=== PATIENT | female | born 2000 | race Caucasian/White ===

== ENCOUNTER 2024-12-16 12:16 | Observation (INO) | payer OTHER, SELFPAY ==
[2024-12-16] VITALS (8 sets, daily range): BP systolic 112–122; BP diastolic 58–79; PULSE 87–111; RESP 16; TEMP 36.9; BMI 35.3
--- NOTE | 2024-12-16 13:04 | OBADM ---
This patient, Susy Skinner, admitted to the OB room [facility] Post 113 for observation. Patient/family oriented to hospital policies and general routines including ID bracelet, bed and alarms, visiting hours, pain management, procedures, bathroom and other care routines, personal items, smoking policy, room service/diet, and visiting hours. Patient/Family are encouraged to report perceived risks to care and to ask questions if they do not understand what they are told or what they should do.
[2024-12-16 13:24] LABS: Add Urine Microscopic? YES; Appearance Urine Cloudy (Clear); Glucose Urine UA Negative (Negative); Leukocyte Esterase Ur 1+ LEU/UL (Negative); Nitrate Urine Negative (Negative); Non Pathogenic Casts 0-2; Specific Grav Ur 1.016 (1.001-1.035)
[2024-12-16 13:27] LABS: OBXCEM ROM Plus Negative (Negative)
--- OUTSIDE RECORDS SUMMARY | 2024-12-16 13:39 | XMS_ITS | Clinical Summary ---
Author Organization [facility] [place] Address [address] [place] [address] Care Team Providers Care Coat Feller Name Role Phone Unavailable Primary Care Provider Unavailabl e Source Comments [facility],non-owned Affiliates and Associated Physician Practices is amultiple site organization consisting of ambulatory clinics and hospital sitesin [place], [place], [place] and [place]. This disclosure is being madepursuant to the Care Everywhere program and may not contain all information available regarding this patient. Last updated 17.[facility] [place] Allergies No known active allergies Medications * Be aware that medications may not be up to date on this document. Alwaysverify current medications with the patient. fluticasone propionate (FLONASE) 50 MCG/ACT nasal spray [place] 1 [place] into each nostril 2 times daily 1 Bottle 1 03/29/2016 Active Active Problems No known active problems Social History Tobacco Use Types Packs/Day Years Used Date Smoking Tobacco: Never Alcohol Use Standard Drinks/Week Comments Not Asked 0 (1 standard drink = 0.6 oz pur e alcohol) Comments Unknown Sex and Gender Information Value Date Recorded Sex Assigned at Not on file Legal Sex Female 5:47 PM CDT Gender Identity Not on file Sexual Orientation Not on file Last Filed Vital Signs Vital Sign Reading Time Taken Comments Blood Pressure 94/60 03/29/2016 10:43 AM [employer] Pulse 105 03/29/2016 10:43 AM [employer] Temperature 37.1 C (98.8 F) 03/29/2016 10:43 AM [employer] DIRECTOR Respiratory Rate - - Oxygen Saturation 96% 03/29/2016 10:43 AM [employer] Inhaled Oxygen Concentration - - Weight 43.5 kg (96 lb) 03/29/2016 10:43 AM [employer] DIRECTOR Height 152.4 cm (5') 03/29/2016 10:43 AM [employer] DIRECTOR Body Mass Index 18.75 03/29/2016 10:43 AM [employer] DIRECTOR Plan of Treatment Health Maintenance Due Date Last Done Comments HIV SCREENING 2016 HPV VACCINE (1 - 3-dose series) 2016 CHLAMYDIA/GONORRHEA SCREENING 2017 MENINGOCOCCAL (Group B) VACC INE SHARED DECISION-MAKING (1 of 2 - Standard) 2017 HEPATITIS C SCREENING 12/19/2019 DTAP/TDAP/TD VACCINES (1 - Tdap) 2020 HEPATITIS B VACCINE (1 of 3 - 19+ 3-dose series) 2020 DEPRESSION SCREENING 02/19/2024 COVID-19 VACCINE (1 - 2023-2 5 season) 2024 INFLUENZA VACCINE (#1) 2024 ZOSTER VACCINE (1 of 2) 12/24/2051 HIB VACCINE Aged Out No longer eligi ble based on patient's age to complete this topic MENINGOCOCCAL GROUPS A/C/Y/W VACCINE Aged Out No longer eligible b ased on patient's age to complete this topic PNEUMOCOCCAL VACCINE Aged Out No long er eligible based on patient's age to complete this topic Insurance ANTH
--- OUTSIDE RECORDS SUMMARY | 2024-12-16 13:40 | XMS_ITS | Data Portability ---
Author Organization [facility] Address [address] [place] [address] [place] [address] Care Team Providers Care Cabin Supervisor Name Role Phone SELENE BRYANT Primary Care Provider MARVA KRAUS Primary Care Provider [phone] Assessment Encounter Date Assessment Date Assessment LastModified by Organization Details LastModified Time 10/14/2024 10/14/2024 Patient is _24__weeks . Discussed plan. Not available 10/16/2024 09:27:11 12/11/2024 12/11/2024 Patient is _32__weeks . Discussed plan. [email or web address] Not available 12/11/2024 16:51:44 Plan of Treatment Reminders Order Date Submit Date Provider Last Modified By Organization Details Last Modified Time Details Appointments OB ROUTINE 2024 04:15P Viviane Aaron CNM Not available Not available Not available OB ROUTINE 2024 03:30P Viviane Aaron CNM Not available Not available Not available Lab None recorded . Referral None recorded . Procedures None recorded . Surgeries None recorded . Imaging US, obstetri c, follow-u p 2024 [id number] [email or web address] [facility], [address], [address], [place], [address], 10/15/2024 22:40:51 Medication Orders None recorded . Patient TargetsNo targets recorded. Patient InstructionsNo instructions recorded. Reason for Referral None Reported. Results Created Date Observation Date Name Description Value Unit Range Abnormal Flag Note LastModifiedBy Organization Detail LastModifiedTime 11/12/19 25 11/11/2024 HEMOG LOBIN (HGB) HGB 9.7 g/dL (based on docume nted legal sex) 11.6-1 5.4 low Not Available [facility] (Lab) [address], [place], [address], 11/12/2024 14:59:07 11/12/19 25 11/11/2024 HEMAT OCRIT (HCT) HCT 31.0 % (based on docume nted legal sex) 34.0-4 5.0 low Not Available [facility] (Lab) [address] [place], [address], 11/12/2024 14:59:07 11/12/19 25 11/11/2024 GTT - GESTA AVRIL L BIBI N, ACOG OB glucose, 1 hour screen 103 mg/dL 70-135 Not Available [facility] (Lab) [address] [place], [address], 11/12/2024 14:59:08 11/12/19 25 11/11/2024 HIV 1/2 ANTIG EN/AN TIBOD Y, REFLE X CONFI RMATI ON HIV antigen/anti body Nonrea ctive nonrea ctive HIV-1 antig en and HIV-1 /HIV- 2 antib odies were not detec ariana. No labor atory evide nce of HIV infec tion. Not Available [facility] (Lab) [address], [place], [address], 11/12/2024 14:59:08 11/12/19 25 11/11/2024 RPR SCREE N, REFLE X TITER /CONF IRMAT ION RPR qualitative Nonrea ctive nonrea ctive Not Available [facility] (Lab) [address] [place], [address], 11/12/2024 14:59:09 09/17/19 25 09/16/2024 US, obste tric, 2nd or 3rd trime ster No observ ation record ed. [email or web address] [facility] [address], [place], [address], 09/16/2024 16:57:12 09/17/19 25 09/16/2024 US, obste tric, follo w-up No observ ation record ed. [email or web address] [address], [place], [address], 09/17/2024 17:23:14 10/15/19 25 10/14/2024 US, obste tric, follo w-up No observ ation record ed. [email or web address] [facility] [address], [place], [address], 10/14/2024 17:53:46 10/15/19 25 10/14/2024 US, obste tric, follo w-up No observ ation record ed. [email or web address] [address], [place], [address], 10/16/2024 14:53:35 Result Notes None recorded. 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 1 11:07:21 Pregnanc y [id number] Active 2024 Jen ingram [facility] 5 16:52:46 Problem Notes None recorded. Procedures Surgical History Date Name Laterality Status Provider Name and Address Organization Details Recorded Time 07/01/2024 Date of Last Pap Smear completed Jen Dempsey [facility] 07/01/2024 12:45:10 11/18/2020 bone graft completed Jen Dempsey [facility] 01/18/2021 11:09:04 Imaging Results None recorded. Procedure Notes None recorded. Medical Equipment None Reported. Allergies No known drug allergies Medications Name Sig Start Date Stop Date Status Note LastModified by Organization Details LastModified Time amoxicillin 500 mg capsule 01/17 completed Not Available Not Available Not Available doxycycline hyclate 100 mg capsule TAKE 1 CAPSULE BY MOUTH TWICE A DAY FOR 7 DAYS 06/27 completed Not Available Not Available Not Available azithromyci n 250 mg tablet TAKE 2 TABLETS BY MOUTH TODAY, THEN TAKE 1 TABLET DAILY FOR 4 DAYS 04/30 completed Not Available Not Available Not Available fluconazole 150 mg tablet TAKE 1 TABLET BY MOUTH EVERY 72 HOURS 12/12 completed Not Available Not Available Not Available hydrocodone 5 mg-acetamin ophen 325 mg tablet 01/17 completed Not Available Not Available Not Available metronidazo le 500 mg tablet TAKE 1 TABLET BY MOUTH TWICE A DAY FOR 7 DAYS 12/12 completed Not Available Not Available Not Available benzonatate 100 mg capsule TAKE 1 CAPSULE BY MOUTH THREE TIMES A DAY FOR 5 DAYS 12/12 completed Not Available Not Available Not Available clotrimazol e-betametha sone 1 %-0.05 % topical cream APPLY TO AFFECTED AREA AND SURROUNDI NG AREAS IN THE MORNING AND EVENING FOR 2 WEEKS 12/12 completed Not Available Not Available Not Available ibuprofen 600 mg tablet 01/18 completed Not Available Not Available Not Available scopolamine 1 mg over 3 days transdermal patch APPLY 1 PATCH BY TRANSDERM AL ROUTE FOR 3 DAYS DIRECTED 10/14 completed Not Available Not Available Not Available methylpredn isolone 4 mg tablets in a dose pack TAKE 6 TABLETS ON DAY 1 DIRECTED ON PACKAGE AND DECREASE BY 1 TAB EACH DAY FOR A TOTAL OF 6 DAYS 04/30 completed Not Available Not Available Not Available albuterol sulfate HFA 90 mcg/actuati on aerosol inhaler INHALE 2 PUFFS BY MOUTH EVERY 4 HOURS FOR 5 DAYS 12/12 completed Not Available Not Available Not Available drospirenon e 3 mg-ethinyl estradiol 0.03 mg tablet TAKE 1 TABLET BY MOUTH EVERY DAY 12/12 completed Not Available Not Available Not Available Junel FE 1.5/30 (28) 1.5 mg-30 mcg (21)/75 mg (7) tablet Take 1 tablet every day by oral route. 09/29 completed Not Available Not Available Not Available nitrofurant oin monohydrate /macrocryst als 100 mg capsule TAKE 1 CAPSULE BY MOUTH EVERY 12 HOURS FOR 7 DAYS 07/01 completed Not Available Not Available Not Available active Not Available Not Avai lable Not Available Xulane 150 mcg-35 mcg/24 hr transdermal patch APPLY 1 PATCH ONTO THE SKIN ONCE WEEKLY 06/20 completed Not Available Not Available Not Available Aurovela Fe 1-20 (28) 1 mg-20 mcg (21)/75 mg (7) tablet TAKE 1 TABLET BY MOUTH EVERY DAY 07/01 completed Not Available Not Available Not Available aspirin 81 mg capsule Take 1 capsule every day by oral route. active Not Available Not Available No t Available Vitals Date Recorded Body height Body mass index (BMI) Body weight Systolic And Diastolic Provider Name and Address Organization Details Last Updated DateTime 10/14/2024 154.94 cm 35 kg/m2 47338.59 g 109/73 mm[Hg] Diana Rollins [facility] 10/14/2024 17:51:42 Date Recorded Body weight Systolic And Diastolic Provider Name and Address Organization Details Last Updated DateTime 11/10/2024 61942.58558 g 97/65 mm[Hg] Tiffany [facility] 11/10/2024 17:57:27 Date Recorded Body weight Systolic And Diastolic Provider Name and Address Organization Details Last Updated DateTime 11/26/2024 72483.76930 g 116/78 mm[Hg] Tiffany [facility] 11/26/2024 17:09:52 Date Recorded Body height Body mass index (BMI) Body weight Systolic And Diastolic Provider Name and Address Organization Details Last Updated DateTime 12/11/2024 154.94 cm 36.3 kg/m2 93499.74 g 102/71 mm[Hg] Shakila Chilel [facility] 12/11/2024 16:37:43 Social History Question Answer Notes LastModified by Organizat ion Details LastModified Time Tobacco Smoking Status Never Smoker Tabitha [facility] 12/12/2022 15:48:40 Do You Have An Advance Directive? No [email or web address] Information n ot available 01/18/2021 If You Are , What Was Your Level Of Alcohol Consumption Prior To ? Occasional [email or web address] Information not available 07/01/2024 How Many Years Have You Consumed Alcohol? 0 [email or web address] Information not available 06/21/2023 Are You Blind Or Do You Have Difficulty Seeing? No [email or web address] Information n ot available 01/18/2021 What Is Your Level Of Caffeine Consumption? Moderate [email or web address] Information not available 11/12/2023 How Much Tobacco Do You Chew? None [email or web address] Information not available 01/18/2021 In The 14 Days Before Symptom Onset, Have You Had Close Contact With A Laboratory-confirm ed COVID-19 While That Case Was Ill? No [email or web address] Information n ot available 01/18/2021 In The 14 Days Before Symptom Onset, Have You Had Close Contact With A Person Who Is Under Investigation For COVID-19 While That Person Was Ill? No [email or web address] Information not available 01/18/2021 Have You Been To An Area Known To Be High Risk For COVID-19? No [email or web address] Information not available 01/18/2021 Are You Deaf Or Do You Have Serious Difficulty Hearing? No [email or web address] Information not available 01/18/2021 What Type Of Diet Are You Following? REGULAR [email or web address] Information n ot available 01/18/2021 What Is The Highest Grade Or Level Of School You Have Completed Or The Highest Degree You Have Received? [id number] [email or web address] Information not available 01/18/2021 Are There Any Guns Present In Your Home? No [email or web address] Information not available 01/18/2021 What Was The Date Of Your Most Recent Tobacco Screening? 07/24/2024 [email or web address] Information not available 07/24/2024 Do You Use Protection During Sex? No [email or web address] Information not available 09/16/2024 Do You Use Your Seat Belt Or Car Seat Routinely? Yes Information not available 01/18/2021 Are You Sexually Active? Yes [email or web address] Information not available 09/16/2024 Do You Have Smoke And Carbon Monoxide Detectors In Your Home? Yes Information not available 01/18/2021 How Much Tobacco Do You Smoke? No [email or web address] Information not available 07/31/2019 Do You Use Sunscreen Routinely? Yes [email or web address] Information not available 01/18/2021 Has Tobacco Cessation Counseling Been Provided? No [email or web address] Information not available 09/16/2024 Have You Used IV Drugs? No [email or web address] Information not available 01/18/2021 Do You Have Difficulty Walking Or Climbing Stairs? No Information not available 12/12/2022 Sex: Unknown Functional Status Question Answer Note LastModified by Organizat ion Details LastModified Time Do you use any illicit or recreational drugs? No Information not available 01/18/2021 Do you or have you ever used any other forms of tobacco or nicotine? No Information not available 09/16/2024 What is your level of alcohol consumption? None [email or web address] Information not available 07/01/2024 Do you or have you ever used smokeless tobacco? Never used smokeless tobacco Information not available 12/12/2022 Are you currently employed? Yes [email or web address] Information not available 09/16/2024 Are you able to walk independently without assistance or assistive devices? YESWOREST [email or web address] Information not available 01/18/2021 Are you able to care for yourself independently? 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 No Information not available 12/12/2022 Do you or have you ever used e-cigarettes or vape? Former user of electronic cigarettes [email or web address] Information not available 07/01/2024 What is your exercise level? Occasional [email or web address] Information not available 07/31/2019 Mental Status Question Answer Note LastModified by Organization D etails LastModified Time Do you feel stressed (tense, restless, nervous, or anxious, or unable to sleep at night)? [id number] [email or web address] Information not available 07/24/2024 Family History Relationship Description Onset Age of this Age Resolved Age Notes LastModified by Organization Details LastModified Time Maternal Aunt Anemia [email or web address] Not av ailable 07/31/2019 14:21:21 Maternal Grandmother Anemia [email or web address] Not available 01/2020 14:21:21 Mother Anemia [email or web address] Not available 07/31/2019 14:21:21 Paternal Grandmother Hypertensive disorder [email or web address] Not available 07/30 14:21:32 Paternal Grandmother Malignant neoplasm of ovary [email or web address] Not available 07/2024 13:43:32 Medical History Condition Response Other N Blood Transfusion N Dermatologic Disorders N Gestational Diabetes N Anxiety Disorder N Autoimmune disease N Arthritis N Polyps N Infertility N Acid Reflux (GERD) N Cancer N Varicosities N Stroke N Neurologic/Epilepsy N Fibromyalgia N Headaches N Kidney Disease N Heart Problems N Kidney or Bladder Problems N Eating Disorder N Art (IVF or FET) N Hepatitis/Liver Disease N No Past Medical History N Urinary Tract Infection N Asthma N Trauma/Violence N Thrombophilias N Allergies (Food, seasonal, environmental ) N Breast Cancer N Drug/Latex Allergies/Reactions N Lung Disease N Defects or Inherited Disease N Breast Problem N Hematologic disorders N Anesthesia Complications N History of STI N Deep Vein Thrombosis N Polycystic ovary syndrome N History of abnormal pap N Endometriosis N High Cholesterol N Thyroid Problems N GI Problems N Anemia N Psychiatric Illness N Ovarian Cancer N Diabetes N Pulmonary (TB, Asthma) N Eczema N Abuse/Domestic Violence N Depression/ depression N Heart Disease N Pre-Eclampsia N Hypertension N Osteoporosis N Gynecological History Statement/Question Response Flow Moderate Date of Last Mammogram Date of LMP 04/29/2024 N Was last menstrual period normal Y STIs/STDs N Date of Last Colonoscopy BCPs Abnormal Pap N HPV Vaccine Y Duration of Flow (days) 5 Current Control Method 14 Are cycles usually normal Y Frequency of Cycle (Q days) 30 Sexually Active? Y Menses Monthly Y Date of DEXA bone scan Age of first menstrual cycle 15 Date of Last Pap Smear 07/01/2024 Sexual Problems? N LMP Approximate N Obstetrics History GPAL:G 1 P 0 0 0 0 Type Value Living 0 Total 1 Past Encounters Encounter ID Performer Location Encounter Start Date Encounter Closed Date Diagnosis/Indication Diagnosis SNOMED-CT Code Diagnosis ICD10 Code Diagnosis IMO Codes Diagnosis Note [id number] Katherine Aaron [facility] [address],[place] [address] 07/31/2019 14:08:16 07/31/2019 14:26:44 Surveillance of oral contraception 246572864 Z30.41 [id number] Katherine Aaron [facility] [address],[place] [address] 01/18/2021 11:00:57 01/18/2021 14:34:47 Gynecologic examination 06143297 Z01.419 see if cramping resolves with this pill call if sxs persist otherwise f/u one year wwe [id number] Katherine Aaron [place] [address],[place] [address] 09/29/2021 11:11:09 09/29/2021 11:42:59 Contraception care management 730915602 Z30.9 [id number] Chet Mir MD [facility] [address],[place] [address] 04/27/2022 14:43:15 04/30/2022 15:21:14 Vulvovaginitis 44028605 N76.0 this patient is a 21-year-ol d female with severe vulvar irritation pain. She reports some vaginal discharge. She was examined. She has of severely swollen labia minora on the left and a very erythemato us vulva. Swabs were taken. We talked about treatment. I treat with Diflucan and Lotrisone. [id number] [facility] [address],[place] [address] 12/12/2022 15:28:55 12/12/2022 16:19:51 Contraception care management 273267939 Z30.9 Gynecologi c examination 67259217 Z01.419 if doesn't like ocp may change back to patch at any time [id number] SILKE Cruz [facility] [address],[place] [address] 06/21/2023 11:14:48 06/21/2023 12:03:42 Pain in pelvis 01049975 R10.2 This patient is a 22 -year-old female with pelvic pain. We have agreed to complete the evaluation with pelvic ultrasound . The patient will return after the pelvic ultrasound to discuss those findings and to develop a treatment plan. A comprehens kaela history and physical exam was performed today. We spent over 25 minutes face-to-fa ce. The patient was given precaution s. She will contact clinic if pelvic pain increases in frequency or intensity. Also notify clinic of any new symptoms associated with pelvic pain. She does not appear to have an acute pelvic infection today, but was asked to contact us Immediatel y with nausea, vomiting, fever, chills. UPT (-)urine cx sentgc/ct/ trich testing sentpelvic u/s scheduledp recautions reviewed Venereal d isease screening 494606470 Z11.3 [id number] Chet Mir MD [facility] [address],[place] [address] 06/27/2023 16:25:14 06/27/2023 17:05:40 Pain in pelvis 96073756 R10.2 [id number] BAHMAN PRICE MD [facility] [address],[place] [address] 11/12/2023 17:02:12 11/12/2023 17:59:27 Cramping pain 546964859 R52 [id number] Chet Mir MD [facility] [address],[place] [address] 07/01/2024 11:44:30 07/01/2024 12:25:01 [id number] Katherine Aaron CNM [facility] [address],[place] [address] 07/01/2024 11:46:03 07/01/2024 12:53:07 Gynecologic examination 56755298 Z01.963 [id number] start pnv, reviewed education precaution spap collectedp charles new ob and first look at 12 weeksf/u 3 weeks [id number] MD Betty Powell [address],[place] [address] 07/24/2024 12:22:41 07/24/2024 13:41:14 screening 585682704 Z36.82 Z3A.12 [id number] [id number] [facility] [address],[place] [address] 07/24/2024 13:43:29 07/29/2024 09:52:28 Gestation period, 12 weeks 59215687 Z3A.12 5249220 s johnson of fetus 12619776 Z34.90 3598023347 [id number] [facility] [address],[place] [address] 08/19/2024 17:07:37 08/19/2024 17:55:38 Gestation period, 16 weeks 76380523 Z3A.16 5772522 [id number] Chet Mir MD [facility] [address],[place] [address] 09/16/2024 15:26:01 09/16/2024 16:41:02 screening for malformation 580378197 Z36.3 Z3A.20 9508475292 [id number] [facility] [address],[place] [address] 09/16/2024 15:27:08 09/16/2024 16:42:11 Gestation period, 20 weeks 94405779 Z3A.20 2443913 cont pnv Dizziness 406564643 R42 00691 [id number] Chet Mir MD [facility] [address],[place] [address] 10/14/2024 16:50:30 10/14/2024 17:49:58 Follow-up encounter 021963300 Z36.2 Z3A.24 1662718053 [id number] [facility] [address],[place] [address] 10/14/2024 16:50:45 10/16/2024 10:02:06 Gestation period, 24 weeks 532860564 Z3A.24 7190219 cont pnv [id number] BAHMAN PRICE MD [facility] [address],[place] [address] 11/10/2024 17:47:07 11/11/2024 08:26:40 Third trimester 54257695 Z34.03 [id number] [id number] BAHMAN PRICE MD [facility] [address],[place] [address] 11/26/2024 16:55:35 11/27/2024 08:45:10 Anemia 166425904 D64.9 8184610 - Hgb 9.7- Fe supplement - Repeat at 34 weeks Gestation period, 30 weeks 63037810 Z3A.30 5727291 - continue PNV [id number] Katherine Aaron [facility] [address],[place] [address] 12/11/2024 16:22:06 12/11/2024 16:53:53 Gestation period, 32 weeks 9341021 Z3A.32 8375896 Health Concerns Section Related Observation LastModified by Organization Detai ls LastModified Time None Recorded Concern Status LastModified by Organization Details LastModified Time None Recorded Advance Directives Directive N: Payers Insurance Date Sequence Insurance Name Policy Number Policy Rdz Covered Member ID Rdz Member ID Guarantor Name 11/12/2023 PAYMENT PLAN Susy Skinner 08/02/2024 PAYMENT PLAN Susy Skinner 08/20/2024 2 [place] [id number] Devon Skinner [id number] Susy Skinner 09/02/2024 1 [place] [id number] Devon Skinner [id number] Susy Skinner 01/16/2021 1 [place] [id number] Devon Skinner [id number] Susy Skinner 09/26/2021 1 [place] [id number] Devon Skinner [id number] Susy Skinner 12/08/2024 1 [facility] (MEDICAID HMO) Susy Skinner [id number] Susy Skinner 12/08/2024 1 [facility] (MEDICAID HMO) Susy Skinner [id number] Susy Skinner 09/02/2024 PAYMENT PLAN Susy Skinner 12/08/2024 1 [place] [facility] Susy Skinner [id number] Susy Skinner 06/29/2024 1 [facility] (PPO) [id number] Devon Skinner [id number] Susy Skinner 12/15/2024 1 [facility] (MEDICAID HMO) [id number] Susy Skinner [id number] Susy Skinner Notes Date Note Type Note Provider Name and Address Organization Details Recorded Time 10/14/2024 text/html Generic HPI TemplateReported by Patient Katherine Aaron CNM [address], [place], [address], [facility] 10/16/2024 09:31:20 11/10/2024 text/html Generic HPI TemplateReported by Patient BAHMAN PRICE MD [address], [place], [address], [facility] 11/10/2024 18:08:14 11/26/2024 text/html Generic HPI TemplateReported by Patient BAHMAN PRICE MD [address], [place], [address], [facility] 11/26/2024 23:55:24 12/11/2024 text/html Generic HPI TemplateReported by Patient Katherine Aaron CNM [address], [place], [address], [facility] 12/11/2024 16:52:05 OBGyn Episode Ob Episode Information Episode Created Date Number of Fetuses Patient Bloodtype Patient rh Status Prepregnancy Weight lbs Domestic Partner Domestic Partner Phone Father Name Tile Designer Status 07/25/19 25 1 A Positive 170 Natthan OPEN Fetus Data First Name Last Name Admitted to NICU Weight (g) Sex Living Outcome Pediatric Complications Fetus ID Race Codes Race Delivery Type [id number] Lee Calculation Initial Lee Date Initial Exam Date Initial Exam Provider Initial Ultrasound Date Last Menstrual Period Date Ultra Sound Weeks Gestation 02/03/2025 07/01/2024 [email or web address] 07/01/2024 04/29/2024 9 Eighteen To Twenty Week Lee Update Ultra Sound Date Fundal Height At Umbil Quickening Date Ultra Sound Latest Weeks Gestation Final Lee Confirmed By Final Lee Confirmed Date Final Lee Date Ultra Sound Latest Days Gestation 0 02/04/20 25 0 Pre-derek Flowsheet Flowsheet Date 07/24/2024 Last Score Blood Edema Fundus Height Fundus Units Glucose Ketones Leukocytes Nitrite Labor Signs Protein Cervic Dilation Cervic Effacement Cervic Station neg none none trace Type Weight in lbs Pre/Post Dialysis Refused Weight 173.601524940054 BP Diastolic BP Location Tested BP Systolic BP Type 76 111 Fetus Heart Rate Present Fetus Movement A No Comments first , reviewed us , education and precautions, start daily bASA and begin routine care Flowsheet Date 08/19/2024 Last Score Blood Edema Fundus Height Fundus Units Glucose Ketones Leukocytes Nitrite Labor Signs Protein Cervic Dilation Cervic Effacement Cervic Station Type Weight in lbs Pre/Post Dialysis Refused 173.753761968704 BP Diastolic BP Location Tested BP Systolic BP Type 67 L arm 97 sitting Fetus Heart Rate Present Fetus Movement A No Comments doing well no questions or c omplaints, no fm yet, plan 20 week anatomy scan f/u 4 weeks Flowsheet Date 09/16/2024 Last Score Blood Edema Fundus Height Fundus Units Glucose Ketones Leukocytes Nitrite Labor Signs Protein Cervic Dilation Cervic Effacement Cervic Station Type Weight in lbs Pre/Post Dialysis Refused BP Diastolic BP Location Tested BP Systolic BP Type Fetus Heart Rate Present Fetus Movement Comments Flowsheet Date 09/16/2024 Last Score Blood Edema Fundus Height Fundus Units Glucose Ketones Leukocytes Nitrite Labor Signs Protein Cervic Dilation Cervic Effacement Cervic Station Type Weight in lbs Pre/Post Dialysis Refused Weight 181.829506792793 BP Diastolic BP Location Tested BP Systolic BP Type 74 L arm 113 sitting Fetus Heart Rate Present Fetus Movement A Yes Comments anatomy incomplete, +FM crui se next week, scop patch to pharmacy, education and precautions f/u 4 weeks Flowsheet Date 10/14/2024 Last Score Blood Edema Fundus Height Fundus Units Glucose Ketones Leukocytes Nitrite Labor Signs Protein Cervic Dilation Cervic Effacement Cervic Station Type Weight in lbs Pre/Post Dialysis Refused BP Diastolic BP Location Tested BP Systolic BP Type Fetus Heart Rate Present Fetus Movement Comments Flowsheet Date 10/14/2024 Last Score Blood Edema Fundus Height Fundus Units Glucose Ketones Leukocytes Nitrite Labor Signs Protein Cervic Dilation Cervic Effacement Cervic Station Type Weight in lbs Pre/Post Dialysis Refused Weight 185.576653352087 BP Diastolic BP Location Tested BP Systolic BP Type 73 L arm 109 sitting Fetus Heart Rate Present Fetus Movement A Yes Comments anatomy complete efw 61%, pl an gct at 28 weeks, precautions and education +FM Flowsheet Date 11/10/2024 Last Score Blood Edema Fundus Height Fundus Units Glucose Ketones Leukocytes Nitrite Labor Signs Protein Cervic Dilation Cervic Effacement Cervic Station Type Weight in lbs Pre/Post Dialysis Refused [id number] BP Diastolic BP Location Tested BP Systolic BP Type 65 97 Fetus Heart Rate Present A 135 Fetus Movement A Yes Comments Good movement. No cram ping or bleeding. Back pain, will size for belly band today. Will return for GCT and labs. Discussed tdap. RTC 2 weeks. Flowsheet Date 11/26/2024 Last Score Blood Edema Fundus Height Fundus Units Glucose Ketones Leukocytes Nitrite Labor Signs Protein Cervic Dilation Cervic Effacement Cervic Station Type Weight in lbs Pre/Post Dialysis Refused 194.362530028912 BP Diastolic BP Location Tested BP Systolic BP Type 78 L arm 116 sitting Fetus Heart Rate Present A 140 Fetus Movement A Yes Comments Doing well, baby active. No cramping or bleeding. Passed GCT. Anemia, taking Fe supplement. Repeat in 4 weeks. RTC 2 weeks. Flowsheet Date 12/11/2024 Last Score Blood Edema Fundus Height Fundus Units Glucose Ketones Leukocytes Nitrite Labor Signs Protein Cervic Dilation Cervic Effacement Cervic Station Type Weight in lbs Pre/Post Dialysis Refused Weight 192.107916863157 BP Diastolic BP Location Tested BP Systolic BP Type 71 L arm 102 sitting Fetus Heart Rate Present A 142 Present Fetus Movement A Yes Comments vaccine rx's given +FM , doi ng well. baby shower next weekend. precautions and education f/u two weeks Menstrual History Last Menstrual Date Menses Monthly On Bcp Conception Prior Menses Frequency Hcg Plus Date Menarche Onset Age 0304/29/2023 Delivery Information Delivery Date Delivery Type Labor Anesthesia Weeks Gestation Incision Type Labor Labor Length Hrs Delivered By Post Complications Tubal Sterilization Discharge Date Comments Discharge Information Feeding Method Contraceptive Method Maternal HG B and HCT Levels
--- NOTE | 2024-12-16 13:43 | PC.NURSE ---
Lorraine Aaron CNM looked up pt's blood type- A Positive.
--- NOTE | 2024-12-16 13:43 | PC.NURSE ---
Lorraine Aaron CNM informed of pt's fall on Saturday, pt's current c/o continuous abdominal tightening and low back cramping. C/O watery discharge since Saturday. ROM plus was negative. Given UA results. Informed started picking up contractions 4-5 mins apart. SVE tight 1 cm- not for sure if it goes all the way through to internal os, 60%, softening, and -2 station. Orders received.
[2024-12-16] MEDS: CEPHALEXIN 500 MG CAPSULE PO (14:58)
--- NOTE | 2024-12-17 07:18 | PM.OBTRLD ---
OB - Triage/Final Diagnosis Visit Information Date of evaluation: 12/16/24 Reason for evaluation: other (abd pain) Comments/Additional reasons for admission: I have assessed the risk for this patient, Susy Skinner, and determined that she would benefit from observation care. Evaluation Laboratory results: Laboratory Tests 12/16/24 12/16/24 12:46 13:21 Urine Color Yellow Urine Appearance Cloudy H Urine pH 7.0 Ur Specific [place] 1.016 Urine Protein Trace Urine Glucose (UA) Negative Urine Ketones Negative Ur Blood (Man) Negative Urine Nitrate Negative Urine Bilirubin Negative Urine Urobilinogen 1.0 Leukocyte Esterase Rfl 1+ H Urine RBC 0-2 Urine WBC 11-20 H Ur Squamous Epith Cells Few Urine Bacteria 1+ H Urine Casts 0-2 Membranes Rupture Rom plus negative Vital signs: Vital Signs - 24 hr 12/16/24 12:47 12/16/24 13:00 12/16/24 13:04 Temperature 36.9 C Pulse Rate 94 90 Respiratory Rate 16 Blood Pressure 121/71 119/68 Oxygen Delivery Room Air 12/16/24 13:30 12/16/24 14:00 12/16/24 14:30 Temperature Pulse Rate 90 87 90 Respiratory Rate Blood Pressure 114/76 120/77 120/79 Oxygen Delivery 12/16/24 15:00 12/16/24 15:30 12/16/24 16:00 Temperature Pulse Rate 103 H 111 H 97 Respiratory Rate Blood Pressure 122/68 112/58 L 117/67 Oxygen Delivery
== END 2024-12-16 16:28 | disposition home or self-care (01) ==
PROVIDERS: Advanced Practice Midwife; Admitting Provider Obstetrics & Gynecology; PCP Internal Medicine; Visit Provider Obstetrics & Gynecology
DX: R10.9 Unspecified abdominal pain (principal); Z3A.34 34 weeks gestation of pregnancy; W18.30XA Fall on same level, unspecified, initial encounter
CPT/HCPCS: 81001; 84112; 87086; A9270; G0378; G0379

== ENCOUNTER 2025-01-28 11:52 | Inpatient (IN) | payer OTHER, SELFPAY ==
[2025-01-28] VITALS (61 sets, daily range): BP systolic 117–134; BP diastolic 68–86; PULSE 50–124; TEMP 36.6–36.7; O2SAT 80–100; BMI 36.1
--- OUTSIDE RECORDS SUMMARY | 2025-01-28 14:43 | XMS_ITS | Clinical Summary ---
Author Organization [facility] Address [address] [place] [address] Care Team Providers Care Conductor Freight Name Role Phone Unavailable Primary Care Provider Unavailabl e Source Comments [facility],non-owned Affiliates and Associated Physician Practices is amultiple site organization consisting of ambulatory clinics and hospital sitesin [place], [place], [place] and [place]. This disclosure is being madepursuant to the Care Everywhere program and may not contain all information available regarding this patient. Last updated 17.[facility] Allergies No known active allergies Medications * Be aware that medications may not be up to date on this document. Alwaysverify current medications with the patient. fluticasone propionate (FLONASE) 50 MCG/ACT nasal spray [place] 1 [place] into each nostril 2 times daily 1 [...] Comments Blood Pressure 94/60 03/29/2016 10:43 AM B[facility]MAN Pulse 105 03/29/2016 10:43 AM [facility]MAN Temperature 37.1 C (98.8 F) 03/29/2016 10:43 AM B[facility]MAN Respiratory Rate - - Oxygen Saturation 96% 03/29/2016 10:43 AM B[facility]MAN Inhaled Oxygen Concentration - - Weight 43.5 kg (96 lb) 03/29/2016 10:43 AM [facility]MAN Height 152.4 cm (5') 03/29/2016 10:43 AM [facility]MAN Body Mass Index 18.75 03/29/2016 10:43 AM B[facility]MAN Plan of Treatment Health Maintenance Due Date [...] DEPRESSION SCREENING 02/19/2024 COVID-19 VACCINE (1 - 2024-2 6 season) 2024 INFLUENZA VACCINE (#1) 2024 ZOSTER [...]
[2025-01-28 20:29] LABS: Hematocrit 30.8 % (37.0-47.0); Hemoglobin 10.0 g/dL (12.0-15.0); Immature Granulocyte Percent A 0.4 % (0-0.5); Lymphocytes Absolute Auto 2.64 K/mm3 (0.9-3.2); Mean Corpuscular HGB Conc 32.5 g/dl (32-36); Mean Corpuscular Hemoglobin 26.9 pg (26-34); Mean Corpuscular Volume 82.8 fl (80-100); Nucleated Red Blood Cells Absolute Auto 0.000 K/mm3 (0.0-0.012); Nucleated Red Blood Cells Perc 0.0 % (0.0-0.2); Platelet Count Result 267 k/mm3 (150-375); Red Blood Count 3.72 M/mm3 (4.2-5.4); White Blood Count 10.5 K/mm3 (4.5-10.0)
--- NOTE | 2025-01-28 20:49 | LDADM ---
This patient, Susy Skinner, was admitted to Labor/Delivery/Recovery 109 on 01/28/25 at 11:52. Plans for labor, pain management and were discussed with patient. Patient/family oriented to hospital policies and general routines including ID bracelet, bed and alarms, visiting hours, pain management, procedures, bathroom and other care routines, personal items, smoking policy, room service/diet and guest tray routines, security routines, and visiting hours. Patient/Family are encouraged to report perceived risks to care and to ask questions if they do not understand what they are told or what they should do. See OBIX for further documentation.
[2025-01-28 21:09] LABS: Syphilis IgG/IgM Antibody Non-Reactive (Nonreactive)
[2025-01-28] MEDS: LACTATED RINGERS 1,000 ML 125 ML IV CONT (21:16)
[2025-01-28] MEDS: OXYTOCIN 30 UNITS/NS 500 ML 30 UNITS/500 ML BAG IV CONT (21:18)
[2025-01-29] VITALS (356 sets, daily range): BP systolic 87–224; BP diastolic 50–194; PULSE 66–221; TEMP 36.6–38.6; O2SAT 88–100
[2025-01-29] MEDS: LACTATED RINGERS 1,000 ML 125 ML IV CONT ×3 (04:54→20:10)
--- NOTE | 2025-01-29 08:04 | WPDANESEPPF ---
Anes - Initial Pre Proc Eval Procedure: labor epidural Date/Time: 01/29/25 08:04 Surgeon: Chet Mir MD Pre Op Diagnosis: labor pain Pre Op Diagnosis: IOL Patient Data Age: 24 Gender: F Height: 1.6 m Weight: 92.7 kg Last Vital Signs Temp 36.7 C 01/29/25 07:15 Pulse 84 01/29/25 06:15 BP 139/98 H 01/29/25 06:15 Pulse Ox 99 01/29/25 06:25 O2 Del Method Room Air 01/28/25 20:00 Allergies Allergy/AdvReac Type Severity Reaction Status Date / Time No Known Allergies Allergy Verified 01/28/25 20:36 Home Medications ?Medication ?Instructions ?Recorded ?Confirmed ?Type ferrous sulfate 325 mg (65 mg 325 mg PO DAILY 12/16/24 01/28/25 History iron) tablet vit no.95-ferrous 1 tablet PO DAILY 12/16/24 01/28/25 History fumarate 28 mg-folic acid 800 mcg tablet () Laboratory Tests 01/28/25 20:17 WBC 10.5 H K/mm3 (4.5-10.0) RBC 3.72 L M/mm3 (4.2-5.4) Hgb 10.0 L g/dL (12.0-15.0) Hct 30.8 L % (37.0-47.0) MCV 82.8 fl (80-100) MCH 26.9 pg (26-34) MCHC 32.5 g/dl (32-36) RDW 15.7 H % (11.5-14.5) Plt Count 267 k/mm3 (150-375) MPV 12.1 H fl (7.4-10.4) Immature Gran % (Auto) 0.4 % (0-0.5) Neut % (Auto) 67.4 % (45.5-73.1) Lymph % (Auto) 25.2 % (18.3-44.2) [place] % (Auto) 6.2 % (2.6-8.5) Eos % (Auto) 0.6 % (0-4.4) Baso % (Auto) 0.2 % (0.2-1.2) Lymph # (Auto) 2.64 K/mm3 (0.9-3.2) [place] # (Auto) 0.7 H K/mm3 (0.1-0.6) Eos # (Auto) 0.1 K/mm3 (0-0.3) Baso # (Auto) 0.0 K/mm3 (0.0-0.1) Abs Immat Gran (auto) 0.04 H K/mm3 (0.00-0.031) Absolute Neuts (auto) 7.1 H K/mm3 (1.3-6.7) Absolute Nucleated RBC 0.000 K/mm3 (0.0-0.012) Nucleated RBC % 0.0 % (0.0-0.2) Syphilis IgG/IgM Ab Non-reactive (Nonreactive) Blood Type A Positive Antibody Screen Negative Patient hx anesthesia problems: none Family hx anesthesia problems: none Results Review: All pre-operative results and documents have been reviewed as part of the pre-operative evaluation. [facility] Past Medical History Medical History (Updated 01/29/25 @ 08:05 by Funmi Man CRNA) Obese Anemia Social History Social History Smoking status: Never smoker Substance use: never Lack of Transportation: No Lack of Food: Never True Current Housing: I Have Housing Concerned About Future Housing: No Difficulty Paying Gas/Electric Bills: No Difficulty Paying for Meds: No Currently Unemployed: No Education: High School Diploma/GED Difficulty w/ Childcare or Family Care: No Spiritual care concerns: No Anes - Eval Final PreProcedure Day of Procedure 01/29/25 08:04 Patient weight: obese Heart: regular rate and rhythm Lungs: clear to auscultation and normal air movement Airway: Mallampati scale Neurological: alert and oriented ASA classification: II Emergent: no Anesthetic plan: proceed Anesthesia type and monitoring: regional epidural and standard monitoring Results Review: All pre-operative results and documents have been reviewed as part of the pre-operative evaluation. Informed Consent: The patient's anesthetic plan and its attendant risks and benefits were discussed with the patient/family/POA. Questions were solicited and answers provided to the satisfaction of the patient/family/POA.
--- NOTE | 2025-01-29 08:11 | WPDHPUPDATE1 ---
History and Physical Update Update Date/Time: 01/29/25 08:11 24-year-old primipara at term who presents for elective induction labor. Pitocin was started overnight, spontaneous rupture membranes occurred this morning clear fluid. Favorable cervix. Reassuring heart tones. Active management of labor. History and Physical has been reviewed, including an updated exam of the patient. There are NO changes in the patient's condition. Risks, benefits, and alternatives have been discussed and questions answered. Patient agrees to proceed with procedure.
[2025-01-29] MEDS: AMPICILLIN SODIUM 2 GM in SODIUM CHLORIDE 0.9% IV 100 ML 200 ML IVPB (21:22)
[2025-01-29] MEDS: ACETAMINOPHEN 500 MG TABLET 1000 MG PO (21:23)
[2025-01-30] VITALS (47 sets, daily range): BP systolic 103–142; BP diastolic 57–93; PULSE 84–217; RESP 14–25; TEMP 36.1–37.1; O2SAT 95–100
[2025-01-30] MEDS: FAMOTIDINE 20 MG/2 ML VIAL IV PUSH (01:21)
--- NOTE | 2025-01-30 01:21 | PM.IMHP2 ---
H&P: HPI History of Present Illness Date/Time: 01/30/25 01:21 Chief Complaint: Term Narrative: This patient is a 24-year-old primiparous female at term with elective induction of labor. She has failure to progress at 8 cm. To perform delivery. She understands risks, benefits, and alternatives. She has completed informed consent process and is ready to proceed. The patient understands the details of the procedure. The procedure has been explained in detail. She understands the risks. She understands that injuries may occur that result in hospitalization, more surgery, and severe illness. She understands risk of hemorrhage and infection. She denies any chest pain or shortness of breath. She denies any nausea, vomiting, fever, chills. Review of Systems Review of Systems: All systems reviewed & are unremarkable except as noted in HPI and below Constitutional: Constitutional: Denies chills, Denies fatigue, Denies fever(s) and Denies weakness Eyes: Eyes: Denies blurry vision, Denies change in vision, Denies loss of peripheral vision, Denies loss of vision, Denies other visual disturbances and Denies eye pain ENT: Denies vertigo, Denies dizziness, Denies hearing loss, Denies mouth pain, Denies nasal obstruction, Denies neck mass and Denies neck pain Cardiovascular: Cardiovascular: Denies chest pain, Denies diaphoresis, Denies syncope, Denies leg edema and Denies dyspnea Respiratory: Respiratory: Denies chest congestion, Denies cough, Denies hemoptysis, Denies dyspnea and Denies wheezing Gastrointestinal: Gastrointestinal: Denies abdominal pain, Denies constipation, Denies diarrhea, Denies nausea and Denies vomiting Genitourinary: Genitourinary: Denies hematuria, Denies change in libido, Denies nocturia, Denies genital lesions, Denies flank pain and Denies urinary urgency Musculoskeletal: Musculoskeletal: Denies abnormal gait, Denies back pain, Denies myalgias, Denies arthralgias, Denies joint swelling, Denies muscle weakness and Denies neck pain Integumentary/Breasts: Skin/Breast: Denies swelling, Denies breast pain, Denies breast mass, Denies dry skin, Denies nipple discharge, Denies unusual bruising and Denies jaundice Neurologic: Denies Neuro-related abnormal movements, Denies Abnormal speech present, Denies abnormal gait, Denies behavioral changes, Denies confusion, Denies vertigo, Denies dizziness, Denies syncope, Denies loss of vision, Denies memory loss, Denies convulsions and Denies weakness Psychiatric: Psychiatric: Denies abnormal sleep pattern, Denies behavioral changes, Denies change in libido, Denies confusion, Denies depression, Denies anhedonia and Denies memory loss Endocrine: Endocrine: Reports no additional endocrine complaints, Denies change in libido and Denies fatigue Hematologic/Lymphatic: Hematologic/Lymphatic: Reports no additional hematologic/lymphatic complaints Allergic/Immunologic: Allergic/Immunologic: Reports no additional allergic/immunologic complaints and Denies wheezing PMFSH Past Medical History Medical History (Updated 01/30/25 @ 01:27 by Chet Mir MD) Obese Anemia Social History Social History Smoking status: Never smoker Substance use: never Lack of Transportation: No Lack of Food: Never True Current Housing: I Have Housing Concerned About Future Housing: No Difficulty Paying Gas/Electric Bills: No Difficulty Paying for Meds: No Currently Unemployed: No Education: High School Diploma/GED Difficulty w/ Childcare or Family Care: No Spiritual care concerns: No Meds Home Medications and Allergies Home Medications ?Medication ?Instructions ?Recorded ?Confirmed ?Type ferrous sulfate 325 mg (65 mg 325 mg PO DAILY 12/16/24 01/28/25 History iron) tablet vit no.95-ferrous 1 tablet PO DAILY 12/16/24 01/28/25 History fumarate 28 mg-folic acid 800 mcg tablet () Allergies Allergy/AdvReac Type Severity Reaction Status Date / Time No Known Allergies Allergy Verified 01/28/25 20:36 Vital Signs Vital Signs - 24 hr 01/29/25 01:22 01/29/25 01:27 01/29/25 01:30 Temperature Pulse Rate 74 Blood Pressure 120/73 Pulse Oximetry 99 98 01/29/25 01:32 01/29/25 01:37 01/29/25 01:42 Temperature Pulse Rate Blood Pressure Pulse Oximetry 98 99 99 01/29/25 01:45 01/29/25 01:47 01/29/25 01:52 Temperature Pulse Rate 78 Blood Pressure 125/86 Pulse Oximetry 99 99 01/29/25 01:57 01/29/25 02:00 01/29/25 02:02 Temperature Pulse Rate 80 Blood Pressure 124/82 Pulse Oximetry 99 99 01/29/25 02:07 01/29/25 02:12 01/29/25 02:15 Temperature Pulse Rate 78 Blood Pressure 122/80 Pulse Oximetry 100 99 01/29/25 02:17 01/29/25 02:22 01/29/25 02:27 Temperature Pulse Rate Blood Pressure Pulse Oximetry 99 99 98 01/29/25 02:30 01/29/25 02:32 01/29/25 02:36 Temperature Pulse Rate 75 Blood Pressure 125/91 H Pulse Oximetry 100 100 01/29/25 02:41 01/29/25 02:45 01/29/25 02:46 Temperature Pulse Rate 72 Blood Pressure 133/86 Pulse Oximetry 99 99 01/29/25 02:51 01/29/25 02:56 01/29/25 03:05 Temperature Pulse Rate Blood Pressure Pulse Oximetry 100 99 98 01/29/25 03:10 01/29/25 03:14 01/29/25 03:19 Temperature Pulse Rate Blood Pressure Pulse Oximetry 99 99 99 01/29/25 03:24 01/29/25 03:29 01/29/25 03:34 Temperature Pulse Rate Blood Pressure Pulse Oximetry 100 100 99 01/29/25 03:39 01/29/25 03:44 01/29/25 03:49 Temperature Pulse Rate Blood Pressure Pulse Oximetry 99 99 100 01/29/25 03:50 01/29/25 03:54 01/29/25 03:59 Temperature 98.2 F Pulse Rate 76 Blood Pressure 121/93 H Pulse Oximetry 100 100 01/29/25 04:04 01/29/25 04:09 01/29/25 04:14 Temperature Pulse Rate Blood Pressure Pulse Oximetry 99 99 99 01/29/25 04:15 01/29/25 04:19 01/29/25 04:24 Temperature Pulse Rate 80 Blood Pressure 131/86 Pulse Oximetry 100 99 01/29/25 04:29 01/29/25 04:30 01/29/25 04:36 Temperature Pulse Rate 71 Blood Pressure 130/98 H Pulse Oximetry 99 100 01/29/25 04:41 01/29/25 04:45 01/29/25 04:46 Temperature Pulse Rate 66 Blood Pressure 122/80 Pulse Oximetry 100 99 01/29/25 04:51 01/29/25 04:56 01/29/25 05:00 Temperature Pulse Rate 79 Blood Pressure 115/75 Pulse Oximetry 99 100 01/29/25 05:01 01/29/25 05:06 01/29/25 05:11 Temperature Pulse Rate Blood Pressure Pulse Oximetry 99 100 100 01/29/25 05:15 01/29/25 05:16 01/29/25 05:21 Temperature Pulse Rate 80 Blood Pressure 129/86 Pulse Oximetry 99 98 01/29/25 05:26 01/29/25 05:30 01/29/25 05:31 Temperature Pulse Rate 87 Blood Pressure 137/71 Pulse Oximetry 98 98 01/29/25 05:36 01/29/25 05:41 01/29/25 05:45 Temperature Pulse Rate Blood Pressure Pulse Oximetry 98 99 99 01/29/25 05:46 01/29/25 05:50 01/29/25 05:55 Temperature Pulse Rate 111 H Blood Pressure 112/72 Pulse Oximetry 98 98 01/29/25 06:00 01/29/25 06:05 01/29/25 06:10 Temperature Pulse Rate 74 Blood Pressure 120/80 Pulse Oximetry 98 98 99 01/29/25 06:15 01/29/25 06:20 01/29/25 06:25 Temperature Pulse Rate 84 Blood Pressure 139/98 H Pulse Oximetry 98 99 99 01/29/25 07:15 01/29/25 08:06 01/29/25 08:08 Temperature 98.1 F Pulse Rate 96 92 Blood Pressure 137/82 121/97 H Pulse Oximetry 99 01/29/25 08:10 01/29/25 08:11 01/29/25 08:13 Temperature Pulse Rate 106 H 98 Blood Pressure 129/90 133/86 Pulse Oximetry 100 01/29/25 08:15 01/29/25 08:16 01/29/25 08:18 Temperature Pulse Rate 91 83 Blood Pressure 129/95 H 136/89 Pulse Oximetry 100 01/29/25 08:20 01/29/25 08:21 01/29/25 08:23 Temperature Pulse Rate 92 87 Blood Pressure 134/93 H 135/85 Pulse Oximetry 100 01/29/25 08:24 01/29/25 08:26 01/29/25 08:28 Temperature Pulse Rate 86 88 86 Blood Pressure 131/60 114/95 H 129/85 Pulse Oximetry 100 01/29/25 08:30 01/29/25 08:31 01/29/25 08:33 Temperature Pulse Rate 80 81 Blood Pressure 128/84 125/79 Pulse Oximetry 99 01/29/25 08:35 01/29/25 08:36 01/29/25 08:38 Temperature Pulse Rate 81 84 Blood Pressure 126/73 128/77 Pulse Oximetry 100 01/29/25 08:40 01/29/25 08:41 01/29/25 08:45 Temperature Pulse Rate 82 170 H Blood Pressure 125/76 97/65 L Pulse Oximetry 100 01/29/25 08:46 01/29/25 08:47 01/29/25 08:50 Temperature Pulse Rate 91 Blood Pressure 110/76 Pulse Oximetry 99 99 01/29/25 08:52 01/29/25 08:55 01/29/25 08:57 Temperature Pulse Rate 102 H Blood Pressure 108/59 L Pulse Oximetry 100 100 01/29/25 09:01 01/29/25 09:02 01/29/25 09:05 Temperature Pulse Rate 105 H 99 Blood Pressure 103/68 113/64 Pulse Oximetry 100 01/29/25 09:07 01/29/25 09:10 01/29/25 09:12 Temperature Pulse Rate 101 H Blood Pressure 136/81 Pulse Oximetry 98 96 01/29/25 09:15 01/29/25 09:16 01/29/25 09:20 Temperature 98.1 F Pulse Rate 101 H 86 Blood Pressure 115/57 L 99/63 L Pulse Oximetry 95 01/29/25 09:21 01/29/25 09:25 01/29/25 09:26 Temperature Pulse Rate 84 Blood Pressure 97/56 L Pulse Oximetry 97 98 01/29/25 09:30 01/29/25 09:31 01/29/25 09:35 Temperature Pulse Rate 77 77 Blood Pressure 97/63 L 97/61 L Pulse Oximetry 100 01/29/25 09:36 01/29/25 09:40 01/29/25 09:41 Temperature Pulse Rate 80 Blood Pressure 97/59 L Pulse Oximetry 100 99 01/29/25 09:45 01/29/25 09:46 01/29/25 09:50 Temperature Pulse Rate 90 89 Blood Pressure 101/68 109/63 Pulse Oximetry 99 01/29/25 09:51 01/29/25 09:55 01/29/25 09:56 Temperature Pulse Rate 129 H Blood Pressure 97/53 L Pulse Oximetry 99 98 01/29/25 10:01 01/29/25 10:06 01/29/25 10:11 Temperature Pulse Rate Blood Pressure Pulse Oximetry 100 100 100 01/29/25 10:15 01/29/25 10:16 01/29/25 10:21 Temperature Pulse Rate 88 Blood Pressure 111/62 Pulse Oximetry 100 100 01/29/25 10:26 01/29/25 10:30 01/29/25 10:31 Temperature Pulse Rate 78 Blood Pressure 112/73 Pulse Oximetry 100 99 01/29/25 10:36 01/29/25 10:41 01/29/25 10:45 Temperature Pulse Rate 92 Blood Pressure 124/78 Pulse Oximetry 99 99 01/29/25 10:46 01/29/25 10:51 01/29/25 10:56 Temperature Pulse Rate Blood Pressure Pulse Oximetry 100 100 100 01/29/25 11:00 01/29/25 11:01 01/29/25 11:06 Temperature Pulse Rate 98 Blood Pressure 123/92 H Pulse Oximetry 99 99 01/29/25 11:11 01/29/25 11:15 01/29/25 11:16 Temperature 98 F Pulse Rate 94 Blood Pressure 123/77 Pulse Oximetry 99 100 01/29/25 11:21 01/29/25 11:26 01/29/25 11:31 Temperature Pulse Rate 82 Blood Pressure 118/64 Pulse Oximetry 100 99 100 01/29/25 11:36 01/29/25 11:41 01/29/25 11:45 Temperature Pulse Rate 77 Blood Pressure 110/57 L Pulse Oximetry 99 99 01/29/25 11:46 01/29/25 11:51 01/29/25 11:56 Temperature Pulse Rate Blood Pressure Pulse Oximetry 98 100 99 01/29/25 11:57 01/29/25 12:00 01/29/25 12:02 Temperature Pulse Rate 81 Blood Pressure 126/91 H Pulse Oximetry 97 100 01/29/25 12:07 01/29/25 12:12 01/29/25 12:16 Temperature Pulse Rate 76 Blood Pressure 127/78 Pulse Oximetry 98 100 01/29/25 12:17 01/29/25 12:22 01/29/25 12:27 Temperature Pulse Rate Blood Pressure Pulse Oximetry 99 99 98 01/29/25 12:30 01/29/25 12:32 01/29/25 12:46 Temperature Pulse Rate 82 97 Blood Pressure 121/75 95/69 L Pulse Oximetry 99 01/29/25 13:00 01/29/25 13:12 01/29/25 13:15 Temperature Pulse Rate 78 75 Blood Pressure 87/61 L 88/63 L Pulse Oximetry 99 01/29/25 13:17 01/29/25 13:22 01/29/25 13:27 Temperature Pulse Rate Blood Pressure Pulse Oximetry 100 100 99 01/29/25 13:30 01/29/25 13:32 01/29/25 13:37 Temperature 98.2 F Pulse Rate 79 Blood Pressure 96/62 L Pulse Oximetry 99 99 01/29/25 13:41 01/29/25 13:45 01/29/25 13:46 Temperature Pulse Rate 83 Blood Pressure 100/50 L Pulse Oximetry 98 100 01/29/25 13:51 01/29/25 13:56 01/29/25 14:01 Temperature Pulse Rate 221 H Blood Pressure 119/66 Pulse Oximetry 100 100 100 01/29/25 14:06 01/29/25 14:11 01/29/25 14:15 Temperature Pulse Rate 92 Blood Pressure 128/88 Pulse Oximetry 99 100 01/29/25 14:16 01/29/25 14:21 01/29/25 14:26 Temperature Pulse Rate Blood Pressure Pulse Oximetry 100 100 100 01/29/25 14:30 01/29/25 14:31 01/29/25 14:36 Temperature Pulse Rate 95 Blood Pressure 127/89 Pulse Oximetry 100 100 01/29/25 14:41 01/29/25 14:45 01/29/25 14:46 Temperature 99 F Pulse Rate 107 H Blood Pressure 128/87 Pulse Oximetry 100 100 01/29/25 14:50 01/29/25 14:51 01/29/25 14:56 Temperature 99 F Pulse Rate Blood Pressure Pulse Oximetry 100 99 01/29/25 15:00 01/29/25 15:01 01/29/25 15:06 Temperature Pulse Rate 117 H Blood Pressure 126/71 Pulse Oximetry 100 100 01/29/25 15:11 01/29/25 15:15 01/29/25 15:16 Temperature Pulse Rate 126 H Blood Pressure 121/69 Pulse Oximetry 100 100 01/29/25 15:21 01/29/25 15:26 01/29/25 15:30 Temperature Pulse Rate 96 Blood Pressure 127/82 Pulse Oximetry 98 98 01/29/25 15:31 01/29/25 15:36 01/29/25 15:41 Temperature Pulse Rate Blood Pressure Pulse Oximetry 99 99 100 01/29/25 15:45 01/29/25 15:46 01/29/25 15:51 Temperature Pulse Rate 104 H Blood Pressure 115/80 Pulse Oximetry 99 100 01/29/25 15:56 01/29/25 16:00 01/29/25 16:01 Temperature Pulse Rate 119 H Blood Pressure 128/94 H Pulse Oximetry 100 99 01/29/25 16:06 01/29/25 16:11 01/29/25 16:15 Temperature Pulse Rate 116 H Blood Pressure 120/78 Pulse Oximetry 97 100 01/29/25 16:16 01/29/25 16:21 01/29/25 16:26 Temperature 98.3 F Pulse Rate Blood Pressure Pulse Oximetry 100 99 99 01/29/25 16:30 01/29/25 16:31 01/29/25 16:34 Temperature Pulse Rate 105 H Blood Pressure 125/77 Pulse Oximetry 96 94 01/29/25 16:35 01/29/25 16:40 01/29/25 16:45 Temperature Pulse Rate 102 H Blood Pressure 123/75 Pulse Oximetry 94 92 93 01/29/25 16:50 01/29/25 16:55 01/29/25 17:00 Temperature Pulse Rate 101 H Blood Pressure 125/78 Pulse Oximetry 93 93 01/29/25 17:15 01/29/25 17:25 01/29/25 17:27 Temperature Pulse Rate 144 H Blood Pressure 132/77 Pulse Oximetry 98 100 01/29/25 17:30 01/29/25 17:32 01/29/25 17:37 Temperature Pulse Rate 136 H Blood Pressure 142/93 H Pulse Oximetry 100 100 01/29/25 17:42 01/29/25 17:45 01/29/25 17:47 Temperature Pulse Rate 109 H Blood Pressure 152/96 H Pulse Oximetry 100 100 01/29/25 17:52 01/29/25 17:57 01/29/25 18:00 Temperature 100 F H Pulse Rate 105 H Blood Pressure 137/93 H Pulse Oximetry 100 100 01/29/25 18:02 01/29/25 18:07 01/29/25 18:12 Temperature Pulse Rate Blood Pressure Pulse Oximetry 100 100 100 01/29/25 18:15 01/29/25 18:17 01/29/25 18:22 Temperature Pulse Rate 101 H Blood Pressure 133/98 H Pulse Oximetry 100 100 01/29/25 18:27 01/29/25 18:30 01/29/25 18:32 Temperature Pulse Rate 100 Blood Pressure 138/88 Pulse Oximetry 100 99 01/29/25 18:37 01/29/25 18:42 01/29/25 18:45 Temperature Pulse Rate 102 H Blood Pressure 119/67 Pulse Oximetry 100 100 01/29/25 18:47 01/29/25 18:52 01/29/25 18:57 Temperature Pulse Rate Blood Pressure Pulse Oximetry 100 100 100 01/29/25 19:00 01/29/25 19:02 01/29/25 19:07 Temperature Pulse Rate 107 H Blood Pressure 121/72 Pulse Oximetry 100 100 01/29/25 19:12 01/29/25 19:15 01/29/25 19:17 Temperature Pulse Rate 97 Blood Pressure 123/99 H Pulse Oximetry 100 100 01/29/25 19:22 01/29/25 19:27 01/29/25 19:30 Temperature Pulse Rate 92 Blood Pressure 131/71 Pulse Oximetry 100 100 01/29/25 19:32 01/29/25 19:37 01/29/25 19:42 Temperature Pulse Rate Blood Pressure Pulse Oximetry 100 100 100 01/29/25 19:46 01/29/25 19:51 01/29/25 19:56 Temperature Pulse Rate 93 Blood Pressure 105/89 Pulse Oximetry 99 100 100 01/29/25 20:00 01/29/25 20:01 01/29/25 20:06 Temperature 100.2 F H Pulse Rate 104 H Blood Pressure 102/64 Pulse Oximetry 98 99 01/29/25 20:11 01/29/25 20:15 12/12/25 20:16 Temperature Pulse Rate 105 H Blood Pressure 91/63 L Pulse Oximetry 100 99 01/29/25 20:21 01/29/25 20:26 01/29/25 20:30 Temperature Pulse Rate 102 H Blood Pressure 101/72 Pulse Oximetry 99 100 01/29/25 20:31 01/29/25 20:36 01/29/25 20:41 Temperature Pulse Rate Blood Pressure Pulse Oximetry 100 100 99 01/29/25 20:45 01/29/25 20:46 01/29/25 20:51 Temperature Pulse Rate 107 H Blood Pressure 112/59 L Pulse Oximetry 99 100 01/29/25 20:56 01/29/25 21:00 01/29/25 21:01 Temperature 101.4 F H Pulse Rate Blood Pressure Pulse Oximetry 99 99 01/29/25 21:06 01/29/25 21:11 01/29/25 21:13 Temperature Pulse Rate 108 H Blood Pressure 127/98 H Pulse Oximetry 100 100 01/29/25 21:14 01/29/25 21:15 01/29/25 21:19 Temperature Pulse Rate 126 H Blood Pressure 129/99 H Pulse Oximetry 100 99 01/29/25 21:20 01/29/25 21:23 01/29/25 21:25 Temperature 101.4 F H Pulse Rate 123 H 136 H Blood Pressure 133/89 144/98 H Pulse Oximetry 100 97 01/29/25 21:30 01/29/25 21:30 01/29/25 21:30 Temperature Pulse Rate Blood Pressure Pulse Oximetry 100 98 99 01/29/25 21:31 01/29/25 21:36 01/29/25 21:37 Temperature Pulse Rate 204 H 115 H Blood Pressure 224/194 H 123/57 L Pulse Oximetry 88 L 100 98 01/29/25 21:42 01/29/25 21:45 01/29/25 21:47 Temperature Pulse Rate 106 H Blood Pressure 116/66 Pulse Oximetry 98 99 01/29/25 21:52 01/29/25 21:57 01/29/25 22:00 Temperature 100.2 F H Pulse Rate 100 Blood Pressure 124/69 Pulse Oximetry 99 99 01/29/25 22:02 01/29/25 22:07 01/29/25 22:12 Temperature Pulse Rate Blood Pressure Pulse Oximetry 99 100 100 01/29/25 22:15 01/29/25 22:17 01/29/25 22:22 Temperature Pulse Rate 109 H Blood Pressure 108/56 L Pulse Oximetry 98 99 01/29/25 22:27 01/29/25 22:30 01/29/25 22:32 Temperature Pulse Rate 114 H Blood Pressure 128/74 Pulse Oximetry 100 100 01/29/25 22:37 01/29/25 22:42 01/29/25 22:45 Temperature Pulse Rate 122 H Blood Pressure 143/85 H Pulse Oximetry 100 99 01/29/25 22:47 01/29/25 22:52 01/29/25 22:57 Temperature Pulse Rate Blood Pressure Pulse Oximetry 100 100 99 01/29/25 23:00 01/29/25 23:02 01/29/25 23:07 Temperature Pulse Rate 127 H Blood Pressure 135/78 Pulse Oximetry 100 98 01/29/25 23:12 01/29/25 23:17 01/29/25 23:20 Temperature 98.4 F Pulse Rate Blood Pressure Pulse Oximetry 100 100 01/29/25 23:22 01/29/25 23:27 01/29/25 23:30 Temperature Pulse Rate 115 H Blood Pressure 139/88 Pulse Oximetry 100 99 01/29/25 23:32 01/29/25 23:45 01/30/25 00:00 Temperature Pulse Rate 100 104 H Blood Pressure 144/89 H 142/86 H Pulse Oximetry 100 01/30/25 00:09 01/30/25 00:14 01/30/25 00:15 Temperature Pulse Rate 100 Blood Pressure 136/75 Pulse Oximetry 98 98 01/30/25 00:19 01/30/25 00:24 01/30/25 00:29 Temperature Pulse Rate Blood Pressure Pulse Oximetry 98 99 100 01/30/25 00:30 01/30/25 00:34 01/30/25 00:39 Temperature Pulse Rate 103 H Blood Pressure 136/79 Pulse Oximetry 99 99 01/30/25 00:44 01/30/25 00:45 01/30/25 00:49 Temperature Pulse Rate 86 Blood Pressure 119/69 Pulse Oximetry 98 98 01/30/25 00:54 01/30/25 00:59 01/30/25 01:00 Temperature Pulse Rate 85 Blood Pressure 114/71 Pulse Oximetry 98 98 01/30/25 01:04 Temperature Pulse Rate Blood Pressure Pulse Oximetry 99 Exam Const: General: cooperative, healthy appearing, comfortable and no acute distress Orientation/consciousness: oriented to person, oriented to place and oriented to time HENMT: Head: normal to inspection Ears: external ears normal Face/Nose/Sinus: Normal external nose present and normal facial exam Face and sinus: normal facial exam Eyes: General: appearance normal, both eyes and all related structures Neck: Neck: normal visual inspection, trachea midline and supple Resp: Auscultation: clear to auscultation bilaterally, no crackles, no rales, no rhonchi and no wheezes Cardio: Rate: regular rate Rhythm: regular rhythm Heart sounds: no click, no murmurs and no rubs GI: GI Palp: No abdominal tenderness, No Soft to palpation, No Tenderness to palpation present (GI) and No Palpable mass present Auscultation: normal bowel sounds Skin: General skin exam: normal color and no rashes or lesions noted Neuro: General: oriented to person, oriented to place and oriented to time Extrem: General: normal to inspection, no joint enlargement, no clubbing, cyanosis or edema, no pedal edema and no calf tenderness Psych: Appearance: grossly normal Mental Status: mental status grossly normal Speech and movement: Normal speech and movement present Assessment and Plan Assessment and plan (1) Failure to progress in first stage of labor: Code(s): O63.0 - Prolonged first stage (of labor) Status: Acute Plan This patient is a 24-year-old primiparous female at term with elective induction of labor. She has failure to progress at 8 cm. To perform delivery. She understands risks, benefits, and alternatives. She has completed informed consent process and is ready to proceed.
[2025-01-30] MEDS: ONDANSETRON INJ 4 MG/2 ML VIAL IV PUSH (01:22)
[2025-01-30] MEDS: LACTATED RINGERS 1,000 ML 125 ML IV CONT (01:26)
--- NOTE | 2025-01-30 01:27 | WPDHPUPDATE1 ---
History and Physical Update Update Date/Time: 01/30/25 01:27 History and Physical has been reviewed, including an updated exam of the patient. There are NO changes in the patient's condition. Risks, benefits, and alternatives have been discussed and questions answered. Patient agrees to proceed with procedure.
--- NOTE | 2025-01-30 01:28 | WPDHPUPDATE1 ---
History and Physical Update Update Date/Time: 01/30/25 01:28 History and Physical has been reviewed, including an updated exam of the patient. There are NO changes in the patient's condition. Risks, benefits, and alternatives have been discussed and questions answered. Patient agrees to proceed with procedure.
--- NOTE | 2025-01-30 01:52 | P.PNAN_ITS ---
Anes - Eval Final PreProcedure Day of Procedure 01/30/25 01:52 Patient weight: obese Heart: tachycardia Lungs: clear to auscultation Neurological: alert and oriented ASA classification: II Emergent: no Anesthetic plan: proceed Anesthesia type and monitoring: regional epidural and standard monitoring Other findings: use existing epid for c/s Results Review: All pre-operative results and documents have been reviewed as part of the pre- operative evaluation. Informed Consent: The patient's anesthetic plan and its attendant risks and benefits were discussed with the patient/family/POA. Questions were solicited and answers provided to the satisfaction of the patient/family/POA.
--- NOTE | 2025-01-30 02:23 | W.PM.OBCSD ---
OB - Delivery Note Procedure Delivery date: 01/30/25 Pre-op diagnosis: Arrest of Dilation Post-op Diagnosis: Same Procedure Performed: Primary Surgeon: Chet Mir MD Anesthesia type: Epidural Description of Procedure/Findings: The patient was taken the operating room.? She was prepped and draped in dorsal supine position with a leftward tilt.? This was done after spinal anesthetic was applied.? A low-transverse skin incision was made and carried down till of the fascia with the knife.? The fascial incision was made with the knife.? The fascial incision was extended laterally with Dominguez scissors.? The fascia was tented upward superiorly and inferiorly the rectus muscles were dissected off bluntly.? The rectus muscles were the midline.? The preperitoneal fat and peritoneum were dissected open bluntly at the superior aspect of the rectus muscles.? The peritoneal incision was extended superior and inferior with good position of bladder.? The uterine incision was made with a scalpel down to the level of the amniotic cavity.? The amniotic cavity was entered bluntly.? The was delivered.? The cord was clamped and cut and the was handed off to waiting pediatric staff.? Cord bloods were obtained.? The placenta was removed manually.? The uterus was exteriorized.? The uterus was cleared of all clots, debris and membranes.? The uterus was closed in 0 Vicryl running lock fashion.? An imbricating over a was placed along the incision line as well.? The uterus was returned to the abdomen.? The gutters were cleared of all clots and debris.? The fascia was closed with 0 Vicryl running fashion.? The subcutaneous tissue was irrigated pinpoint bleeders were cauterized.? The skin was closed with subcuticular absorbable ravi.? The skin incision line was covered with glue.? The patient tolerated the procedure well.? She has taken recovery room in stable condition.? Sponge lap and needle counts were correct x2.?
[2025-01-30] MEDS: OXYTOCIN 30 UNITS/NS 500 ML 30 UNITS/500 ML BAG 125 UNITS IV CONT (04:20)
[2025-01-30] MEDS: KETOROLAC 15 MG/ML VIAL (*BKC) IV PUSH ×3 (05:35→17:44)
[2025-01-30] MEDS: ACETAMINOPHEN 500 MG TABLET 1000 MG PO ×4 (05:35→23:42)
--- NOTE | 2025-01-30 06:39 | OBPPTRN ---
Patient and infant transferred to post room #280 via stretcher. Support person present. Oriented to unit, room, information board, rooming in, admission packet and security measures. Patient verbalizes understanding.
[2025-01-30] MEDS: MULTIVIT/MIN/PREN/FOL AC/IRON TABLET 1 TAB PO (07:53)
[2025-01-30] MEDS: SIMETHICONE 80 MG TAB.CHEW PO ×3 (07:53→17:44)
[2025-01-30] MEDS: DOCUSATE SODIUM 100 MG CAPSULE PO ×2 (07:53→17:44)
[2025-01-30] MEDS: FERROUS SULFATE 325 MG TABLET BY MOUTH (07:53)
--- NOTE | 2025-01-30 16:14 | WPDANLDPN2 ---
Anes-Prog Note L&D Date/Time: 01/30/25 16:14 Comfortable throughout: labor and section Neuro status: Neuro function grossly intact. Cardiovascular status: normal Respiratory status: normal Airway patency: baseline Mental status: baseline Post-Op hydration status: normal Vital Signs: Last Vital Signs Temp 97.9 F 01/30/25 12:00 Pulse 84 01/30/25 12:00 Resp 16 01/30/25 12:00 BP 118/76 01/30/25 12:00 Pulse Ox 95 01/30/25 12:00 O2 Del Method Room Air 01/30/25 04:55 Pain score (VAS): 0 I/O: Intake & Output 01/30/25 01/30/25 01/30/25 07:59 15:59 23:59 Intake Total 658.3 Output Total 988 Balance -329.7 Patient feedback: Patient satisfied with anesthetic care.
--- NOTE | 2025-01-30 16:15 | WPDANLDNPN2 ---
Anes-Prog Note L&D-Neuraxial Date/Time: 01/30/25 16:15 Opiod-related complaints: pruritis moderate, treatment effective Patient feedback: Patient satisfied with post-operative pain management.
--- NOTE | 2025-01-30 16:15 | WPDANLDNPN2 ---
Anes-Prog Note L&D-Neuraxial Date/Time: 01/30/25 16:15 Neuraxial medications: epidural PF morphine Opiod-related complaints: pruritis Patient feedback: Patient satisfied with post-operative pain management.
[2025-01-30] MEDS: LIDOCAINE 5% PATCH 1 PATCH TRANSDERM (21:09)
[2025-01-30] MEDS: IBUPROFEN 600 MG TABLET PO (23:42)
[2025-01-31 05:28] LABS: Hematocrit 21.5 % (37.0-47.0); Immature Granulocyte Percent A 0.4 % (0-0.5); Lymphocytes Absolute Auto 3.15 K/mm3 (0.9-3.2); Mean Corpuscular HGB Conc 31.6 g/dl (32-36); Mean Corpuscular Hemoglobin 26.7 pg (26-34); Mean Corpuscular Volume 84.3 fl (80-100); Nucleated Red Blood Cells Absolute Auto 0.000 K/mm3 (0.0-0.012); Nucleated Red Blood Cells Perc 0.0 % (0.0-0.2); Platelet Count Result 174 k/mm3 (150-375); Red Blood Count 2.55 M/mm3 (4.2-5.4); White Blood Count 13.5 K/mm3 (4.5-10.0)
[2025-01-31 05:30] LABS: Hemoglobin 6.8 g/dL (12.0-15.0)
[2025-01-31] MEDS: ACETAMINOPHEN 500 MG TABLET 1000 MG PO ×3 (06:05→18:10)
[2025-01-31] MEDS: IBUPROFEN 600 MG TABLET PO ×3 (06:05→18:10)
[2025-01-31 07:45] VITALS: BP 126/91; PULSE 87; RESP 16; TEMP 36.6; O2SAT 100
[2025-01-31] MEDS: FERROUS SULFATE 325 MG TABLET BY MOUTH (07:45)
[2025-01-31] MEDS: DOCUSATE SODIUM 100 MG CAPSULE PO ×2 (07:45→18:10)
[2025-01-31] MEDS: SIMETHICONE 80 MG TAB.CHEW PO ×3 (07:45→18:10)
[2025-01-31] MEDS: MULTIVIT/MIN/PREN/FOL AC/IRON TABLET 1 TAB PO (07:45)
--- NOTE | 2025-01-31 13:16 | PM.OBPNVD ---
OB - PN: Subj Subjective Date/time seen: 01/31/25 13:16 Patient comments: no complaints, pain well controlled, incisional pain, tolerating diet and flatus present OB - PN: Obj Data Labs 01/31/25 05:13 Labs: Laboratory Results - last 24 hr 01/31/25 05:13 WBC 13.5 H RBC 2.55 L Hgb 6.8 L* D Hct 21.5 L MCV 84.3 MCH 26.7 MCHC 31.6 L RDW 15.9 H Plt Count 174 MPV 11.5 H Immature Gran % (Auto) 0.4 Neut % (Auto) 69.1 Lymph % (Auto) 23.3 Charles % (Auto) 5.9 Eos % (Auto) 1.1 Baso % (Auto) 0.2 Lymph # (Auto) 3.15 Charles # (Auto) 0.8 H Eos # (Auto) 0.2 Baso # (Auto) 0.0 Abs Immat Gran (auto) 0.05 H Absolute Neuts (auto) 9.4 H Absolute Nucleated RBC 0.000 Nucleated RBC % 0.0 OB - PN A/P Plan day: 1 Plan: routine care Comments: No problems, routine care Time Spent With Patient Time: Total time spent is greater than 50% in coordination of care (as documented) at patient's floor/unit and/or counseling patient: Exam Const: General: comfortable, no acute distress and alert Resp: Effort & Inspection: normal respiratory effort Auscultation: no crackles, no rales and no rhonchi Cardio: Rate: regular rate Heart sounds: no click, no murmurs and no rubs GI: Inspection: non-distended GI Palp: No Tenderness to palpation present (GI) Auscultation: normal bowel sounds Other: Incision - CDI Extrem: General: normal to inspection, no pedal edema and no calf tenderness
[2025-01-31 19:48] VITALS: BP 125/87; PULSE 96; RESP 16; TEMP 37.2; O2SAT 99
[2025-02-01] MEDS: IBUPROFEN 600 MG TABLET PO ×3 (00:07→13:36)
[2025-02-01] MEDS: ACETAMINOPHEN 500 MG TABLET 1000 MG PO ×3 (00:07→13:36)
[2025-02-01 07:10] VITALS: BP 125/85; PULSE 85; RESP 16; TEMP 36.9; O2SAT 99
--- NOTE | 2025-02-01 07:53 | P.PNOB_ITS ---
OB - PN: Subj Subjective Date/time seen: 02/01/25 07:53 Interval history: pp day 2 doing well desires d/c home flatus present voiding w/o difficulty OB - PN: Obj Data Labs 01/31/25 05:13 OB - PN A/P Plan day: 2 Plan: routine care Comments: plan blood infusion rpt cbc 4 hours later Time Spent With Patient Time: Total time spent is greater than 50% in coordination of care (as documented) at patient's floor/unit and/or counseling patient: Review of Systems 2 Review of Systems: All systems reviewed & are unremarkable except as noted in HPI and below Exam 2 Const: General: cooperative and healthy appearing Chest: Chest palpation & inspection: normal inspection of the chest Resp: Effort & Inspection: normal respiratory effort Cardio: Rate: regular rate GI: Other: incision CDI Neuro: General: patient oriented x3
[2025-02-01] MEDS: SIMETHICONE 80 MG TAB.CHEW PO ×3 (09:03→17:22)
[2025-02-01] MEDS: FERROUS SULFATE 325 MG TABLET BY MOUTH (09:03)
[2025-02-01] MEDS: DOCUSATE SODIUM 100 MG CAPSULE PO ×2 (09:03→17:22)
[2025-02-01] MEDS: MULTIVIT/MIN/PREN/FOL AC/IRON TABLET 1 TAB PO (09:03)
[2025-02-01 13:32] VITALS: BP 113/76; PULSE 100; RESP 16; TEMP 37.4; O2SAT 100
[2025-02-01] MEDS: SODIUM CHLORIDE 0.9% IV 250 ML 30 ML IV CONT (13:37)
[2025-02-01 13:49] VITALS: BP 123/81; PULSE 89; RESP 18; TEMP 36.9; O2SAT 99
[2025-02-01 14:49] VITALS: BP 128/81; PULSE 93; RESP 18; TEMP 37.1; O2SAT 98
[2025-02-01] MEDS: oxyCODONE HCL (*CRX) 5 MG TAB IR PO (15:19)
[2025-02-01] MEDS: TETANUS,DIPHTHERIA,AC PERTUSSIS ADULT (0.5 ML) BOOSTRIX IM (15:20)
[2025-02-01 15:49] VITALS: BP 136/94; PULSE 83; RESP 16; TEMP 37.1; O2SAT 99
--- NOTE | 2025-02-01 16:29 | PC.NURSE ---
1330 Patient is currently receiving a blood transfusion, she had requested getting measured for her breast pump and discussing the feeding plan. She would like to go home later today but is going to take a nap while her blood transfuses, [facility] RN to return later. Reported to Primary RN. 1617 Consulted with mother concerning needs and she shared her ability to independently latch infant without pain using the nipple shield, but she had not been latching as often and only using the breast pump. Her plan is to breastfeed with the nipple shield, attempt to nurse without the shield, use her breast pump and supplement her . Mother requested to be measured for her breast pump, she measured at 21mm. Instructions were given on cleaning, care, usage, that there should be no pain, pumping schedule for milk production, collection, and storage of human milk. Patient was assessed for correct placement, flange size, to pump for comfort and nipple stretching/stimulation for adequate milk production every 3 hours (8 times in 24 hours) 1-2 times at night. Parents are encouraged to record the pumping schedule on the feeding sheet.?Mother voiced understanding of the education shared along with mom/baby guide and the pump measurement, flange fit handout for additional resource information. Mother is feeding appropriately for growth of and understands stimulating infant to eat if needed. has had appropriate feedings in the last 24 hours meets the outcomes for weight, output, blood sugar and jaundice at this time. Reinforced understanding of milk production, transition of milk, signs of adequate intake, transition of stool, prevention/relief of engorgement, plugged ducts, mastitis, responsive watching for feeding cues, the different methods of stimulating to breastfeed 1-3 hours after the start of the last feeding, community resources, and when to call a provider using the resource of the feeding sheet along with the mom and baby guide. Mother voiced understanding of the information shared, is confident to continue effectively feed her at home, when to call for assistance, denies any additional assistance or education at this time. Reported to the Primary RN.
[2025-02-01] MEDS: INFLUENZA VACCINE 45 MCG/0.5 ML SYRINGE IM (17:23)
[2025-02-01 19:54] LABS: Hematocrit 27.0 % (37.0-47.0); Hemoglobin 8.7 g/dL (12.0-15.0)
[2025-02-03 11:15] VITALS: BP 132/89; PULSE 81; RESP 18; TEMP 37.3; O2SAT 100
--- NOTE | 2025-02-28 21:49 | P.DS_ITS ---
DS: Admitting Diagnosis Discharge Date 02/01/25 Admitting Diagnosis term DS: Discharge Diagnosis Discharge Diagnosis (1) delivery delivered: Code(s): O82 - Encounter for delivery without indication Status: Acute OB - DS: Summary OB Procedures : None OB Procedures Intrapartum: OB Procedures: : None Peripartum Data Procedures: Procedures Operation Date: 01/30/25 00:30 Actual Procedure Side Surgeon p Section Bilateral Chet Mir MD Time Spent with Patient Time attestation: Total time spent providing and/or coordinating discharge services: Discharge Plan Discharge Attending physician on discharge: Chet Mir Consulting providers: Katherine Aaron; Funmi Man; Mauricio Roth; Poornima Barraza Discharging Clinician: Katherine Aaron Anticipated Discharge Date/Time: 02/01/25 20:10 Patient Disposition: Home Activity: pelvic rest Diet: regular Wound Care Instructions: incision open to air Discharge Instructions: Education: Mom and Baby Guide Given to: Mother Follow-Up: Call your delivering provider's office for an appointment to be seen in: 4 Weeks Mom and baby should come to the [facility] for the follow-up appointment. Appointment Date/Time: February 03, 2025 at 11:00 am What to expect at your follow-up visit: Blood Pressure Check Physical Assessment Call [phone] if you are unable to keep your appointment time. BREAST CARE: * Wear a snug supportive bra. * For engorgement discomfort: Breast Feeding: * Apply warm moist washcloths * Express milk as needed to relieve engorgement * Wear loose clothing Bottle Feeding: * May apply ice packs * For sore nipples: * Identify correct latch-on * Apply warm moist washcloths before and after nursing * Air dry nipples after nursing * May apply Lansinoh cream to nipples ABDOMINAL INCISION: (if applicable) * Allow incision to air dry * Do NOT use lotions for powders on your incision * When showering, allow soap and water to run over the incision, but do not wash incision EPISIOTOMY/PERINEAL CARE: * Until bleeding stops, use your sonia bottle after urinating * Change your pad frequently throughout the day * You may take sitz baths several times a day (fill your bathtub with warm water and soak for 20 minutes.) Do NOT bathe in the water * No tub baths until seen by your physician - You may shower ACTIVITY: * Rest as much as possible. * Do not exercise or lift anything heavier than your baby (such as laundry or other children.) * Avoid stairs or driving as much as possible. * Do not put anything into the vagina. No douching, tampons, or sexual activity until seen by physician. NOTIFY PHYSICIAN IF YOU HAVE ANY QUESTIONS OR IF ANY OF THE FOLLOWING SYMPTOMS OCCUR: * If your episiotomy or incision becomes red, swollen, or more painful than what you have experienced in the hospital. * If your vaginal bleeding becomes foul smelling. * If your vaginal bleeding becomes more heavy than a period or if your bleeding changes from pink to bright red. However, you may pass an occasional walnut- sized clot once or twice for the first week . * If you experience a sharp, shooting pain in you calves. * If you discover a hard, reddened area on your breast or if you experience flu- like symptoms. DIET: * Eat regular, well-balanced meals. * Drink plenty of fluids daily. If , drink to thirst. Patient Language: Cook Islander Stand Alone Forms: General Discharge Information Follow-up/Referrals: Chet Mir MD [Physician, CONSERVATION EDUCATOR] - 1 Week Discharge Medications: New oxycodone 5 mg Tablet 5 mg PO Q4H PRN (Reason: Pain Rated 4-6) 14 Days Qty: 30 0RF Discontinued PNV no.95-ferrous fumarate-FA [] 28 mg iron- 800 mcg tablet 1 tablet PO DAILY ferrous sulfate 325 mg (65 mg iron) tablet 325 mg PO DAILY Date of admission: 01/28/25 11:52 Primary Care Provider: Halle,Librado Nuñez Admitting Provider: Chet Mir Attending physician on admission: Chet Mir Condition: Stable
== END 2025-02-01 21:10 | disposition home or self-care (01) | DRG 540 ==
LOC: ANHLDR 16:38 → ANHOB2 01-30 05:56
PROVIDERS: Advanced Practice Midwife; Admitting Provider Obstetrics & Gynecology; PCP Internal Medicine; Visit Provider Obstetrics & Gynecology
PROC: 10D00Z1 Extraction of Products of Conception, Low, Open Approach (ICD-10-PCS; CPT 59514; principal; 2025-01-30 00:30)
DX: O63.0 Prolonged first stage (of labor) (principal); Z37.0 Single live birth; Z3A.39 39 weeks gestation of pregnancy; Z23 Encounter for immunization
CPT/HCPCS: 36415; 36430; 85014; 85018; 85025; 86593; 86850; 86900; 86901; 86923; 90471; 90656; 90715; A9270; G0008; J0290; J1885; J2274; J2405; J2590; J2795; J7050; J7120; P9016

== ENCOUNTER 2025-02-03 11:29 | Outpatient (CLI) | payer OTHER, SELFPAY ==
[2025-02-03] VITALS (7 sets, daily range): BP systolic 134–139; BP diastolic 78–98; PULSE 72–97
[2025-02-03] MEDS: IBUPROFEN 600 MG TABLET PO (12:18)
[2025-02-03 12:42] LABS: Hematocrit 27.3 % (37.0-47.0); Hemoglobin 8.8 g/dL (12.0-15.0); Immature Granulocyte Percent A 0.7 % (0-0.5); Lymphocytes Absolute Auto 1.64 K/mm3 (0.9-3.2); Mean Corpuscular HGB Conc 32.2 g/dl (32-36); Mean Corpuscular Hemoglobin 27.1 pg (26-34); Mean Corpuscular Volume 84.0 fl (80-100); Nucleated Red Blood Cells Absolute Auto 0.000 K/mm3 (0.0-0.012); Nucleated Red Blood Cells Perc 0.0 % (0.0-0.2); Platelet Count Result 265 k/mm3 (150-375); Red Blood Count 3.25 M/mm3 (4.2-5.4); White Blood Count 8.1 K/mm3 (4.5-10.0)
[2025-02-03 13:08] LABS: Alanine Aminotransferase 19 U/L (6-35); Albumin Level 3.7 g/dL (3.5-5.1); Alkaline Phosphatase 118 U/L (38-126); Anion Gap 9 mmol/L (4-12); Aspartate Amino Transferase 29 U/L (14-36); Bilirubin,Total 0.4 mg/dL (0.2-1.3); Blood Urea Nitrogen 10 mg/dL (7-17); Calcium 9.2 mg/dL (8.4-10.2); Carbon Dioxide 23 mmol/L (22-30); Chloride 104 mmol/L (98-107); Estimated Glomerular Filt Rate > 60; Glucose 77 mg/dL (65-110); Potassium 4.2 mmol/L (3.4-5.0); Sodium 136 mmol/L (137-145); Total Protein 6.8 g/dL (6.3-8.2); Uric Acid 7.0 mg/dL (2.5-7.5)
--- OUTSIDE RECORDS SUMMARY | 2025-02-03 13:56 | XMS_ITS | Data Portability ---
Author Organization [facility], Main Office Address [address] [place] [address] Assessment No assessment recorded. Plan of Treatment Reminders Order Date Submit Date Provider Last Modified By Organization Details Last Modified Time Details Appointments None record ed. Lab None record ed. Referral None record ed. Procedures None record ed. Surgeries None record ed. Imaging None record ed. Medication Orders None record ed. Patient TargetsNo targets recorded. Patient InstructionsNo instructions recorded. Reason for Referral None Reported. Problems Name Problem SNOMED Code Status Onset Date Resolution Date Notes Provider Name and Address Organization Details Recorded Time Gestation period, 23 weeks 36633181 Active 025 Librado Neri MD [address], [place], [address] , [facility] 16:31:54 Problem Notes None recorded. Procedures Surgical History Date Name Laterality Status Provider Name and Address Organization Details Recorded Time facial bone - bone graft completed ELOY Zepeda [facility] 10/07/2024 16:20:34 Imaging Results None recorded. Procedure Notes None recorded. Medical Equipment None Reported. Allergies No known drug allergies Medications Name Sig Start Date Stop Date Status Note LastModified by Organization Details LastModified Time scopolamine 1 mg over 3 days transdermal patch APPLY 1 PATCH BY TRANSDERMAL ROUTE FOR 3 DAYS DIRECTED active Not Available Not Available No t Available nitrofuranto in monohydrate/ macrocrystal s 100 mg capsule TAKE 1 CAPSULE BY MOUTH EVERY 12 HOURS FOR 7 DAYS active Not Available Not Available N ot Available Vitals Date Recorded Body weight Body mass index (BMI) Body height Body temperature Heart rate Oxygen saturation Systolic And Diastolic Provider Name and Address Organization Details Last Updated DateTime 5 19336.7 7 g 34.2 kg/m2 157.48 cm 97.1 [degF] 96 /min 98 % 114/64 mm[Hg] Bibishantell xie ELOY [employer] [facility] 16:16:06 Social History Question Answer Notes LastModified by Organizat ion Details LastModified Time Tobacco Smoking Status Former Smoker vape Bibishantell Elaine ELOY juan jose [place] Michelle [facility] 10/07/2024 16:18:14 Do You Have An Advance Directive? No Information not available 10/07/2024 Is Blood Transfusion Acceptable In An Emergency? Yes Information not available 10/07/2024 What Is Your Level Of Caffeine Consumption? Occasional Information not available 10/07/2024 What Type Of Diet Are You Following? REGULAR Information not available 10/07/2024 What Is The Highest Grade Or Level Of School You Have Completed Or The Highest Degree You Have Received? CK40268-5 Information not available 10/07/2024 Have There Been Any Changes To Your Family Or Social Situation? No Information not available 10/07/2024 Do You Use Insect Repellent Routinely? No Information not available 10/07/2024 Where Do You Live? [facility] Information not available 10/07/2024 What Was The Date Of Your Most Recent Tobacco Screening? 10/07/2024 Information not available 10/07/2024 Do You Have Any Pets? Yes Information not available 10/07/2024 What Is Your Relationship Status? Single Information not available 10/07/2024 Do You Use Your Seat Belt Or Car Seat Routinely? Yes Information not available 10/07/2024 Do You Have Smoke And Carbon Monoxide Detectors In Your Home? Yes Information not available 10/07/2024 At What Age Did You Start Smoking Tobacco? 17 Information not available 10/07/2024 Are You Passively Exposed To Smoke? No Information not available 10/07/2024 Are There Any Smokers In Your House? No Information not available 10/07/2024 Do You Use Sunscreen Routinely? Yes Information not available 10/07/2024 Have You Recently Traveled Abroad? Yes Went To [place] And Returned On 10/04 (Cruise) Information not available 10/07/2024 Do You Have Any Dietary Restrictions? No Information not available 10/07/2024 Sex: Female Functional Status Question Answer Note LastModified by Organizat ion Details LastModified Time Do you use any illicit or recreational drugs? No Information not available 10/07/2024 What is your level of alcohol consumption? 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 [id number] Information not available 10/07/2024 Family History Nothing Reported Notes:does not know Medical History No medical history recorded. Gynecological HistoryNo gynecological history recorded. Obstetrics History GPAL:G 0 P 0 0 0 0 Immunizations Vaccine Type Date Status Note Provider Nam e and Address Organization Details Recorded Time Hep B, adolescent or pediatric 2 completed Not Available [facility] 10/07/2024 16:14:35 Hep B, adolescent or pediatric 2 completed Not Available [facility] 10/07/2024 16:14:35 Hib, unspecified formulation 3 completed Not Available [facility] 10/07/2024 16:14:35 pneumococcal conjugate PCV 7 3 completed Not Available [facility] 10/07/2024 16:14:35 DTaP 3 completed Not Available [facility] 10/07/2024 16:14:35 IPV 3 completed Not Available [facility] 10/07/2024 16:14:35 pneumococcal conjugate PCV 7 3 completed Not Available [facility] 10/07/2024 16:14:35 DTaP 3 completed Not Available [facility] 10/07/2024 16:14:35 IPV 3 completed Not Available [facility] 10/07/2024 16:14:35 Hib, unspecified formulation 3 completed Not Available [facility] 10/07/2024 16:14:35 pneumococcal conjugate PCV 7 3 completed Not Available [facility] 10/07/2024 16:14:35 DTaP 3 completed Not Available [facility] 10/07/2024 16:14:35 Hib, unspecified formulation 3 completed Not Available [facility] 10/07/2024 16:14:35 Hep B, adolescent or pediatric 3 completed Not Available [facility] 10/07/2024 16:14:35 varicella 3 completed Not Available [facility] 10/07/2024 16:14:35 MMR 4 completed Not Available [facility] 10/07/2024 16:14:35 IPV 4 completed Not Available [facility] 10/07/2024 16:14:35 DTaP 4 completed Not Available [facility] 10/07/2024 16:14:35 Hib, unspecified formulation 4 completed Not Available [facility] 10/07/2024 16:14:35 pneumococcal conjugate PCV 7 4 completed Not Available [facility] 10/07/2024 16:14:35 MMR 6 completed Not Available [facility] 10/07/2024 16:14:35 DTaP 6 completed Not Available [facility] 10/07/2024 16:14:35 varicella 8 completed Not Available [facility] 10/07/2024 16:14:35 IPV 8 completed Not Available [facility] 10/07/2024 16:14:35 HPV, quadrivalent 4 completed Not Available [facility] 10/07/2024 16:14:35 Tdap 4 completed Not Available [facility] 10/07/2024 16:14:35 Hep A, ped/adol, 2 dose 4 completed Not Available [facility] 10/07/2024 16:14:35 meningococcal MCV4P 4 completed Not Available [facility] 10/07/2024 16:14:35 HPV9 5 completed Not Available [facility] 10/07/2024 16:14:35 Hep A, ped/adol, 2 dose 5 completed Not Available [facility] 10/07/2024 16:14:35 HPV9 6 completed Not Available [facility] 10/07/2024 16:14:35 meningococcal B, OMV 0 completed Not Available [facility] 10/07/2024 16:14:35 Meningococcal MCV4O 0 completed Not Available [facility] 10/07/2024 16:14:35 COVID-19, mRNA, LNP-S, PF, 30 mcg/0.3 mL dose 1 completed Not Available [facility] 10/07/2024 16:14:35 COVID-19, mRNA, LNP-S, PF, 30 mcg/0.3 mL dose 1 completed Not Available [facility] 10/07/2024 16:14:35 Past Encounters Encounter ID Performer Location Encounter Start Date Encounter Closed Date Diagnosis/Indication Diagnosis SNOMED-CT Code Diagnosis ICD10 Code Diagnosis IMO Codes Diagnosis Note [id number] Librado Neri MD [facility] Internal Med [address] [place] [address] 10/07/2024 16:08:32 10/08/2024 15:27:18 Adult health examination 435883952 Z00.00 Z13.220 in good health, labs being done at OBG Gestation period, 23 weeks 30967853 Z3A.23 [id number] seeing OBG Health Concerns Section Related Observation LastModified by Organization Detai ls LastModified Time None Recorded Concern Status LastModified by Organization Details LastModified Time None Recorded Advance Directives Directive N: Payers Insurance Date Sequence Insurance Name Policy Number Policy Rdz Covered Member ID Rdz Member ID Guarantor Name 10/07/2024 1 [facility] (MEDICAID HMO) [id number] Susy Skinner [id number] Susy Skinner Notes Date Note Type Note Provider Name and Address Organization Details Recorded Time 10/07/2024 text/html Pt is a 23 y/o here today to establish careSHE IS IN GOOD HEALTHShe is currently on vitamins because she is 23 weeks preg.[facility] boyfriend, she is active. No complaints Librado Neri MD [address], [place], [address], [place] - [facility] 10/07/2024 16:33:21 OBGyn Episode No OBEpisode recorded.
--- OUTSIDE RECORDS SUMMARY | 2025-02-03 13:56 | XMS_ITS | Clinical Summary ---
Author Organization [facility] Address [address] [place] [address] Care Team Providers Care Global Regulatory Lead Name Role Phone Unavailable Primary Care Provider Unavailabl e Source Comments [facility],non-owned Affiliates and Associated Physician Practices is amultiple site organization consisting of ambulatory clinics and hospital sitesin [place], [place], [place] and [place]. This disclosure is being madepursuant to the Care Everywhere program and may not contain all information available regarding this patient. Last updated 17.[facility] Allergies No known active allergies Medications * Be aware that medications may not be up to date on this document. Alwaysverify current medications with the patient. fluticasone propionate (FLONASE) 50 MCG/ACT nasal spray [place] 1 [place] into each nostril 2 times daily 1 [...] Comments Blood Pressure 94/60 03/29/2016 10:43 AM [employer] [facility] Pulse 105 03/29/2016 10:43 AM [employer] Temperature 37.1 C (98.8 F) 03/29/2016 10:43 AM [employer] Respiratory Rate - - Oxygen Saturation 96% 03/29/2016 10:43 AM [employer] Inhaled Oxygen Concentration - - Weight 43.5 kg (96 lb) 03/29/2016 10:43 AM [employer] Height 152.4 cm (5') 03/29/2016 10:43 AM [employer] Body Mass Index 18.75 03/29/2016 10:43 AM [employer] Plan of Treatment Health Maintenance Due Date [...]
== END 2025-02-03 14:10 | disposition home or self-care (01) ==
LOC: ANHOBOP 11:55 → ANHOBPP 12:02
PROVIDERS: PCP Internal Medicine; Visit Provider Advanced Practice Midwife
DX: O16.5 Unspecified maternal hypertension, complicating the puerperium (principal)
CPT/HCPCS: 36415; 80053; 84550; 85025; 99199; A9270